=== PATIENT | male | born 1955 | race Caucasian/White ===

== ENCOUNTER 2017-11-26 06:38 | Observation (INO) | payer BC ==
[2017-11-26] MEDS ORDERED: ceFAZolin 2 GM/SWFI 2 GM/20 ML SYR IVP ONE (06:47)
[2017-11-26] MEDS ORDERED: LIDOCAINE 1% 2 ML INJ ID PRN (06:47)
[2017-11-26] MEDS ORDERED: GABAPENTIN 300 MG CAP PO ONE (06:47)
[2017-11-26] MEDS ORDERED: LR 1,000 ML IV ONE (06:47)
[2017-11-26] MEDS ORDERED: ACETAMINOPHEN 500 MG TAB PO ONE (06:47)
[2017-11-26] MEDS ORDERED: CHLORHEXIDINE GLUC HIBICLENS 118 ML BTL TP ONE (07:00)
[2017-11-26] MEDS ORDERED: THROMBIN (BOVINE) 20,000 UNIT VIAL TP ONE (07:00)
[2017-11-26] MEDS ORDERED: SURGIFLO MATRIX KIT WITH THROMBIN 8ml TP ONE (07:00)
[2017-11-26] MEDS ORDERED: BACITRACIN 50,000 UNITS/10 ML SYR IRR ONE ×2 (07:01→07:51)
--- NOTE | 2017-11-26 07:09 | PDHPUP ---
History & Physical Update H&P update statement: This history and physical update is based on an assessment of the patient which was completed after admission or registration (within 24 hours), but prior to the surgery/procedure. H&P update: H&P reviewed & patient examined, no change in patient's condition since H&P completed (Patient seen this morning and all questions answered. Site marked and consents signed.)
--- NOTE | 2017-11-26 07:21 | PDANEPAE ---
ANE Past Medical History - Cardiovascular History Hx Hypertension: No Hx Arrhythmias: No Hx Chest Pain: No Hx Coronary Artery / Peripheral Vascular Disease: No Hx CHF / Valvular Disease: No Hx Palpitations: No - Pulmonary History Hx COPD: No Hx Asthma/Reactive Airway Disease: No Hx Recent Upper Respiratory Infection: No Hx Oxygen in Use at Home: No Hx Sleep Apnea: No Sleep Apnea Screening Result - Last Documented: Negative - Neurologic History Hx Cerebrovascular Accident: No Hx Seizures: No Hx Dementia: No - Endocrine History Hx Diabetes: No - Renal History Hx Renal Disorders: No - Liver History Hx Hepatic Disorders: No - Neurological & Psychiatric Hx Hx Neurological and Psychiatric Disorders: Yes Neurological / Psychiatric History Comment: numbness /tingling left arm - Cancer History Hx Cancer: No - Congenital Disorder History Hx Congenital Disorders: No - GI History Hx Gastrointestinal Disorders: No - Other Health History Other Health History: none - Chronic Pain History Chronic Pain: No (lower back bulging disc) - Surgical History Prior Surgeries: menisectomy left knee ANE Review of Systems Review of Systems: - Exercise capacity METS (RN): 4 METS ANE Patient History - Allergies Allergies/Adverse Reactions: No Known Allergies Allergy (Verified 10/30/17 16:22) - Home Medications Home Medications: Aspirin [Aspirin 81mg (*)] 81 mg PO DAILY 10/29/17 [Last Taken 08/30/17] Calcium Carbonate [Oyster Shell Calcium 500 mg (*)] 500 mg PO DAILY 10/29/17 [ Last Taken Unknown] HYDROcodone BITARTRATE [Hysingla ER] 40 mg PO DAILY 10/29/17 [Last Taken 07:05] HYDROcodone/APAP 10/325 [[place] 10/325 (*)] 1 tab PO Q8HRS PRN 10/29/17 [Last Taken 11/25/17 08:00] Testosterone IM [Testosterone 100mg/ml IM inj (*)] 50 mg IM FR 10/29/17 [Last Taken Unknown] - NPO status NPO Since - Liquids (Date): 11/25/17 NPO Since - Liquids (Time): 22:00 NPO Since - Solids (Date): 11/25/17 NPO Since - Solids (Time): 18:00 - Smoking Hx Smoking Status: Former smoker - Family Anes Hx Family Hx Anesthesia Complications: none ANE Labs/Vital Signs - Vital Signs Blood Pressure: 148/83 Heart Rate: 69 Respiratory Rate: 16 O2 Sat (%): 93 Height: 180.34 cm Weight: 111.13 kg ANE Physical Exam - Airway Mallampati Score: Class 2 Mouth exam: dentures - ASA Status ASA Status: II ANE Anesthesia Plan Anesthesia Plan: general endotracheal anesthesia
[2017-11-26] MEDS ORDERED: MIDAZOLAM 2 MG/2 ML VIAL ONE (08:08)
[2017-11-26] MEDS ORDERED: fentaNYL 100 MCG/2 ML INJ ONE ×3 (08:08→10:05)
[2017-11-26] MEDS ORDERED: PROPOFOL 200 MG/20 ML VIAL ONE (08:09)
[2017-11-26] MEDS ORDERED: PROPOFOL/EMULSION 500 MG/50 ML BOTTLE IV ONE (08:09)
[2017-11-26] MEDS ORDERED: BUPIVACAINE 0.5% 10 ML SDV ONE (08:20)
[2017-11-26] MEDS ORDERED: METOCLOPRAMIDE 10 MG/2 ML VIAL ONE (08:44)
[2017-11-26] MEDS ORDERED: ONDANSETRON 4 MG/2 ML VIAL ONE ×2 (08:44→08:55)
[2017-11-26] MEDS ORDERED: METOPROLOL TARTRATE 5 MG/5 ML INJ ONE (08:44)
[2017-11-26] MEDS ORDERED: DEXAMETHASONE 4 MG/ML VIAL ONE ×2 (08:55)
[2017-11-26] MEDS ORDERED: LR 500 ML IV PRN (09:59)
[2017-11-26] MEDS ORDERED: ONDANSETRON 4 MG/2 ML VIAL IVP PRN ×2 (09:59→10:03)
[2017-11-26] MEDS ORDERED: NALOXONE HCL 0.4 MG/ML INJ IVP PRN (09:59)
[2017-11-26] MEDS ORDERED: PROMETHAZINE HCL 25 MG/ML INJ IVP PRN ×2 (09:59→10:03)
--- NOTE | 2017-11-26 10:00 | POSTANESTH ---
Post Anesthetic Evaluation Cardiovascular Status: Normal, Stable Respiratory Status: Normal, Stable Level of Consciousness/Mental Status: Can Participate in Eval Pain Control: Adequate, Prn Tx Ordered Nausea/Vomiting Control: Adequate, Prn Tx Ordered Complications Possibly Related to Anesthesia: None Noted
[2017-11-26] MEDS ORDERED: LACTULOSE 20 GM/30 ML UDCUP PO PRN (10:03)
[2017-11-26] MEDS ORDERED: diphenhydrAMINE 25 MG CAP PO PRN (10:03)
[2017-11-26] MEDS ORDERED: HYDROmorphONE/DILAUDID 1 MG/ML INJ IVP PRN (10:03)
[2017-11-26] MEDS ORDERED: ONDANSETRON DISINTEGRATING 4 MG TAB PO PRN (10:03)
[2017-11-26] MEDS ORDERED: MAGNESIUM HYDROXIDE 30 ML UDCUP PO PRN (10:03)
[2017-11-26] MEDS ORDERED: POLYETHYLENE GLYCOL 3350 17 GM PKT PO PRN (10:03)
[2017-11-26] MEDS ORDERED: BISACODYL 10 MG SUPP PR PRN (10:03)
[2017-11-26] MEDS: fentaNYL 100 MCG/2 ML INJ IVP PRN ×2 (10:09→10:24)
[2017-11-26] MEDS ORDERED: ACETAMINOPHEN 500 MG TAB PO PRN (10:11)
--- NOTE | 2017-11-26 10:12 | POSTOPPROG ---
Post Op Note Date of Operation: 11/26/17 Surgeon: Yoana Brewster Watch Case Polisher: Bertha Brewster PA-C Anesthesiologist: Yane Anesthesia: GET(General Endotracheal) Pre-op Diagnosis: cervical stenosis Post-op Diagnosis: same Indication: arm pain/weakness Procedure: C67 ACDF Findings: Please see dictatino Inf/Abcess present in the surg proc area at time of surgery?: No Depth: Organ Space EBL: Minimal Complications: none Specimen(s): none PA Addendum - Addendum .: S: Pt in PACU, c/o burning posterior neck pain O: AAOx3 NAD VSS MAEx4 Motor 5/5 BUE/BLE +LT Incision dressed cdi A: 62 yo M s/p C67 ACDF P: PT/OT/TRAFFIC CHECKER Pain management Post op xrays pending No collar Spine precautions TEDs, SCDs, lovenox POD#3 Call NS with any questions/concerns D/w Dr Bae
[2017-11-26] MEDS ORDERED: NS W/ 20 KCl/L 1,000 ML IV SCH (10:15)
[2017-11-26] MEDS ORDERED: HYDROmorphONE/DILAUDID 2 MG/ML INJ ONE (10:18)
[2017-11-26] MEDS: HYDROmorphONE/DILAUDID 1 MG/ML INJ IVP PRN ×3 (10:21→10:53)
[2017-11-26] MEDS: CYCLOBENZAPRINE 10 MG TAB PO PRN ×2 (10:36→20:23)
--- NOTE | 2017-11-26 10:48 | GOP ---
[f rep st] OPERATIVE REPORT DATE OF OPERATION: 11/26/2017 SURGEON: Lambert Bea MD NEUROSURGEON: Lambert Bae MD ACCESS DEVELOPER: DAGMAR Toth ANESTHESIA: General. PREOPERATIVE DIAGNOSIS: 1. C6-C7 cervical spondylosis. 2. Left upper extremity radiculopathy. 3. Treatment refractory to nonoperative intervention. POSTOPERATIVE DIAGNOSIS: 1. C6-C7 cervical spondylosis. 2. Left upper extremity radiculopathy. 3. Treatment refractory to nonoperative intervention. PROCEDURE PERFORMED: 1. Anterior arthrodesis with approach to C6-C7. 2. C6-C7 diskectomy with bilateral foraminotomies, osteophytectomies and interbody fusion using 8 mm titanium coated PEEK cage filled with morselized autograft and allograft. 3. Anterior cervical fusion C6-C7 with a 19 mm Medtronic Zevo plate. 4. Use of intraoperative fluoroscopy, less than 1 hour physician time. 5. Use of neuromonitoring. 6. Use of operative microscope. FINDINGS: per imaging SPECIMENS: None. ESTIMATED BLOOD LOSS: 15 mL. INDICATIONS: The patient is a gentleman who unfortunately has been suffering from left upper extremity radiculopathy. He has spondylosis throughout his neck but this pain appeared to be localized to the C6-C7 level. After failing nonoperative interventions, and after discussion of the risks, benefits, and treatment alternatives, we decided to proceed forth with surgery as described above. DESCRIPTION OF PROCEDURE: Patient was brought to the operating theater and underwent general endotracheal anesthesia without complications. Venodynes, FLORY hose and the appropriate lines were placed by Anesthesia. His head was maintained supine on the operating table in slight extension. Using lateral fluoroscopy and spinal needle, we picked our entry point to the C6-C7 level. This was somewhat difficult to visualize secondary the patient's body habitus. We again confirmed it using oblique x-rays. This was marked as a transverse incision on the right anterior aspect of his neck. This area was prepped and draped in the usual sterile surgical fashion. A time-out was completed per protocol and the patient received antibiotics within 1 hour of incision. The incision was taken down with the scalpel blade and then, using monopolar, taken down through the subcutaneous tissues to the level of the platysma. The platysma was over-mined in the cranial and caudal directions. A Weitlaner was placed to maintain our exposure. Using blunt and sharp dissection, we then traveled in a plane medial to the carotid sheath and lateral to the esophagus and trachea until we reached the prevertebral fascia. We then placed a bayonetted needle into the disk space at C6-C7 and confirmed our level using lateral fluoroscopy. Again, visualization was somewhat difficult secondary to the patient's body habitus and shoulders. We did confirm it using oblique x- rays. At this point, we elevated the longus coli muscle from the anterior vertebral bodies of C6 and C7 and deep retractors were placed to maintain our exposure. The microscope was brought into the field to assist with microscopic dissection and to maintain illumination and magnification. We placed a [place] pin into the vertebral body of C6 and C7 and placed C6-C7 into mild distraction. We completed a C6-C7 diskectomy with bilateral foraminotomies and osteophytectomies. We prepared the cartilaginous endplates and measured the interbody space. We placed an 8 mm titanium coated PEEK cage filled with morselized autograft and allograft into the C6-C7 disk space. I removed the [place] pins and drilled down the anterior osteophytes. We secured a 19 mm Medtronic Zevo plate onto the vertebral bodies of C6 and C7. AP and lateral x- rays demonstrated good placement of the hardware. The wound was irrigated copiously with bacitracin irrigation. We then closed the wound in multiple layers using Vicryl sutures for the deep layers and Dermabond for the skin. The patient's wounds were dressed sterilely. He was awakened, extubated and taken to recovery room in stable condition. There were no complications and no noted changes on neuromonitoring throughout the procedure. COMPLICATIONS: None. /[id number]/MODL MTDD
[2017-11-26] MEDS ORDERED: LABETALOL HCL 5 MG/ML 20 ML MDV ONE (11:05)
[2017-11-26] MEDS: LABETALOL HCL 5 MG/ML 20 ML MDV IVP PRN ×2 (11:06→11:16)
[2017-11-26] MEDS: HYDROCODONE/APAP 5/325 TAB PO PRN ×5 (12:18→23:37)
[2017-11-26] MEDS ORDERED: ACETAMINOPHEN 500 MG TAB PO SCH (14:00)
[2017-11-26] MEDS ORDERED: ceFAZolin 2 GM/DEXTROSE 100 ML IV SCH (14:00)
[2017-11-26 15:51] VITALS: RESP 16
[2017-11-26] MEDS: ceFAZolin 2 GM/SWFI 2 GM/20 ML SYR IVP SCH ×2 (15:59→23:32)
[2017-11-26] MEDS: SENNOSIDES/DOCUSATE SODIUM TAB PO SCH (20:21)
[2017-11-26] MEDS: FAMOTIDINE 20 MG TAB PO SCH (20:21)
[2017-11-27] MEDS: HYDROCODONE/APAP 5/325 TAB PO PRN ×2 (04:32→07:34)
[2017-11-27] MEDS: CYCLOBENZAPRINE 10 MG TAB PO PRN (04:34)
[2017-11-27] MEDS: SENNOSIDES/DOCUSATE SODIUM TAB PO SCH (07:34)
[2017-11-27] MEDS: FAMOTIDINE 20 MG TAB PO SCH (07:35)
[2017-11-27 07:41] VITALS: BP 114/84; PULSE 65; TEMP 97.7; O2SAT 90
--- NOTE | 2017-11-27 08:27 | NEUSURGPN ---
Date of Surgery: 11/26/17 Post Op Day: 1 Assessment/Plan: Assessment: 62 year old male s/p ACDF C6-7 POD#1 Plan: -Patient doing well this am, pre operative pain in scapula resolved -Patient will discharge home today -Patient denies any difficulties with swallowing, will have ST see prior to discharge -No collar needed -Post op xrays stable hardware placement -Patient discussed with Dr Bae -Please call neurosurgery with any questions/concerns Subjective: Feeling good, pre op pain gone Objective: AAOx3 NAD VSS MAEx4 Motor 5/5 BUE/BLE +LT Incision dressed cdi Neuro Check Frequency: per routine Urinary Catheter in Place: No - Physician Discussed Patient with : [facility] Physical Exam - Vitals, I&O, Labs I and O 11/26/17 11/27/17 11/28/17 05:59 05:59 05:59 Intake Total 2040 Output Total 1315 Balance 725 Weight 111.13 kg Intake: Oral (ml) 740 IV Intake (ml) 1300 Output: Urine (ml) 1300 Toilet 1300 Estimated Blood Loss (ml) 15 Other: Intake Quantity Yes Sufficient Number of Voids Toilet 1 Vital Signs Temp Pulse Resp BP Pulse Ox 36.5 C 65 16 114/84 H 90 L 11/27/17 07:40 11/27/17 07:40 11/27/17 07:40 11/27/17 07:40 11/27/17 07:40 ICD10 Worksheet Patient Problems: Problems Problem Status Onset Cervical stenosis of spine Acute - ICD10 Problem Qualifiers (1) Cervical stenosis of spine
[2017-11-27] MEDS ORDERED: HYDROCODONE BITARTRATE 40 MG PO SCH (09:00)
--- NOTE | 2017-11-27 10:50 | ASMTLACE ---
LACE Length of stay for Answers: 1 day current admission Acuity / Level of Answers: No Care: Did the patient have an inpatient admission? Comorbidities - select Answers: Opioid dependence all that apply / Chronic pain # of Emergency department Answers: 0 visits in the last 6 months Score: 5 Date Signed: 11/27/2017 10:49 AM Electronically Signed By:Kimberlee Caldwell RN
--- NOTE | 2017-11-27 10:52 | ASMTCMCOM ---
CM Note CM Note Notes: Pt is POD#1 ACDF surgery. Reveiwed chart, discussed w/RN and w/pt. Pt will dc home today w/ and will follow up w/neurosurg and out pt therapy. Date Signed: 11/27/2017 10:51 AM Electronically Signed By:Kimberlee Caldwell RN
[2017-11-29] MEDS ORDERED: ENOXAPARIN 40 MG/0.4 ML SYR SC SCH (09:00)
[2017-11-29] MEDS ORDERED: TESTOSTERONE IM 100 MG/ML SYRINGE IM SCH (10:00)
== END 2017-11-27 10:57 | disposition home or self-care (01) ==
LOC: F3N 06:38
PROVIDERS: ADMIT Neurological Surgery; ATTEND Neurological Surgery
DX: M50.123 Cervical disc disorder at C6-C7 level with radiculopathy (principal); I71.2 Thoracic aortic aneurysm, without rupture
CPT/HCPCS: 22551; 72040; 76001; 92610; 97161; 97165; G0378; C1713; J0690; J1100; J1170; J2250; J2405; J2704; J2765; J3010